=== PATIENT | male | born 1995 | race Two or more races ===

== ENCOUNTER 2017-10-19 19:52 | Emergency (ER) | payer MEDICAID ==
[~2017-10-19] VITALS: Ht 177.8 cm; Wt 77.1 kg
[2017-10-19 20:02] VITALS: BP 139/84
[2017-10-19] MEDS ORDERED: IBUPROFEN 600 MG TABLET PO ONE ×2 (20:10→20:30)
[2017-10-19] MEDS ORDERED: ACETAMINOPHEN ES 500 MG TABLET PO ONE (21:00)
[2017-10-19] MEDS ORDERED: ACETAMINOPHEN ES 500 MG TABLET ONE (21:02)
== END 2017-10-19 22:36 | disposition home or self-care (01) ==
LOC: ER 19:58
DX: J02.9 Acute pharyngitis, unspecified (principal)
CPT/HCPCS: 86403-TC; 87070-TC; A4606; Z7610